=== PATIENT | female | born 1970 | race Caucasian/White ===

== ENCOUNTER 2019-06-03 09:39 | Inpatient (IN) ==
[2019-06-03] MEDS ORDERED: ASPIRIN PO ONE (09:48)
[2019-06-03] MEDS ORDERED: LOVENOX 1 MG/KG SUBQ ONE (10:17)
[2019-06-03] MEDS ORDERED: NITROGLYCERIN TOP ONE (10:17)
[2019-06-03 10:26] LABS: BASO# 0.02 X1000 (0.0-0.2); BASO% 0.3 % (0.0-0.8); EOS# 0.43 X1000 (0.0-0.7); EOS% 6.8 % (0.0-10.0); HEMATOCRIT 46.4 % (37.0-47.0); HEMOGLOBIN 16.2 g/dL (12.0-16.0); IMM GRAN# 0.02 X1000 (0.0-0.04); IMM GRAN% 0.3 % (0.0-0.5); LYMPH# 2.52 X1000 (1.2-3.4); MCH 33.7 PG (27-31); MCHC 34.9 g/dL (33-37); MCV 96.5 FL (81-99); MONO# 0.34 X1000 (0.11-0.59); MONO% 5.4 % (1.7-9.3); MPV 10.8 FL (7.4-10.4); NEUT# 2.97 X1000 (1.4-6.5); NEUT% 47.2 % (42.2-75.2); PLT 211 X1000 (130-400); RBC 4.81 XMIL (4.2-5.4); RDW 12.6 % (11.5-14.5)
[2019-06-03 10:37] LABS: AGAP 9; ALB/GLOB RATIO 1.7; ALBUMIN 4.5 g/dL (3.5-5.0); ALKALINE PHOSPHATASE 74 U/L (32-104); BUN 9 mg/dL (8-22); CALCIUM 9.4 mg/dL (8.8-10.2); CHLORIDE 104 mmol/L (98-107); CK PROFILE 88 U/L (24-173); COSMO 276; CREATININE 0.9 mg/dL (0.5-0.9); ESTIMATED GFR > 60; GLUCOSE 94 mg/dL (70-104); GOT 14 U/L (10-30); GPT 13 U/L (10-36); INR 0.87; POTASSIUM 4.9 mmol/L (3.5-5.1); PROTIME 12.6 Seconds (11.0-16.0); SODIUM 139 mmol/L (136-145); TCO2 26 mmol/L (25-35); TOTAL BILIRUBIN 0.36 mg/dL (0.20-1.00); TOTAL PROTEIN 7.2 g/dL (6.3-8.3)
[2019-06-03 10:38] LABS: PTT 29.2 Seconds (22.3-41.8)
--- NOTE | 2019-06-03 10:58 | PROVIDER DOCUMENTATION ---
This chart was entered by Romina Brown Scribe, acting as scribe for Hola Fonseca MD. HPI-Chest Pain - General Chief Complaint: Shortness of Breath Stated Complaint: HEART PT-CP ARM/JAW PAIN Time Seen by Provider: 06/03/19 09:56 Source: patient Allergies/Adverse Reactions: Patient Allergies Allergy/AdvReac Type Severity Reaction Status Date / Time No Known Allergies Allergy Verified 06/03/19 09:48 Home Medications: Home Medication List Medication Instructions Recorded Confirmed Last Taken Type Aspirin [Adult Aspirin] 1 tab PO DAILY 06/03/19 06/03/19 06/02/19 History Mv,Calcium,Min/Iron/Folic/Vitk 1 tab PO DAILY 06/03/19 06/03/19 06/02/19 History [Multi For Her Tablet] - History of Present Illness-CP Nature of Presenting Problem: 48yof presents to ED cc left side chest pain that radiates into her left neck, shoulder and elbow, SOB, nausea, lightheaded and fatigue since last night that is intermittent, last seconds and has happened about 10-15 times. Pt reports she had a wisdom tooth removed on left lower side recently and developed an infection and dry socket and originally thought pain was from that but now it feels like it did when she had a AL in 02/2018 and went into cardiac arrest. Pt reports she has 1 stent placed and just had her 1yr visit with director underwriter sales and was taken off blood thinners. Pt is A&Ox3. Location: reports: other (left side) Chest Pain Radiation: reports: neck (left), shoulders (left) Quality of Pain: reports: throbbing Severity in ED: mild Onset/Duration: last night Timing: still present, intermittent Context/Activities at Onset: reports: light activity Modifying Factors: improves with: nothing Associated Symptoms: reports: diaphoresis, fatigue, nausea, shortness of breath Nitro Today/Relief: no nitro taken today Aspirin Treatment Today: no aspirin today Prior Chest Pain/Cardiac Workup: reports: heart attack Similar Symptoms Previously?: Yes Recently Seen Here or By Another Healthcare Provider: No Review of Systems - Adult - REVIEW OF SYSTEMS - ADULT Constitutional: reports: see HPIhailey. denies: chills, fever Eyes: reports: no symptoms reported Ears, Nose, Mouth & Throat: reports: see HPI, mouth/dental pain Cardiovascular: reports: see HPI, chest pain Respiratory: reports: see HPI, shortness of breath Gastrointestinal: reports: see HPI, nausea Genitourinary: reports: no symptoms reported Musculoskeletal: reports: no symptoms reported Integumentary: reports: no symptoms reported Neurological: reports: see HPI, other (lightheaded) Psychiatric: reports: no symptoms reported Endocrine: reports: no symptoms reported Hematologic/Lymphatic: reports: no symptoms reported Allergic/Immunologic: reports: no symptoms reported All Other Systems: Reviewed and Negative Past History - Adult - PAST MEDICAL HISTORY-ADULT Review of Records: reports: Nursing Assessment Review, Medications Reviewed, Social history reviewed & non-contributory. Major Childhood Illnesses: reports: denies history Cardiovascular: reports: denies history Respiratory: reports: denies history Gastrointestinal: reports: denies history Obstetrical/Gynecological: reports: denies history Genitourinary: reports: denies history Musculoskeletal: reports: denies history Neurological: reports: denies history Endocrine/Immune: reports: denies history Other Conditions: reports: denies history - IMMUNIZATION STATUS Childhood Immunizations: See Nurse Assessment Flu Vaccine: See Nurse Assessment - FAMILY HISTORY Family History: reviewed, not pertinent - SOCIAL HISTORY Smoking: cigarettes, greater than 1 pack/day Provider spent 3-5 mins advising pt. on dangers of tobacco.: Discussed manners to quit use, and f/u contacts for add'l counseling. Physical Exam-General - PHYSICAL EXAM-ADULT Initial Vital Signs Reviewed: Yes - CONSTITUTIONAL General Appearance: appears well, alert, no apparent distress. negative: anxious, combative - EYES Eyes: PERRL/EOMI, pink conjunctivae. negative: meningismus, pale conjunctivae, photophobia - HEAD, EARS, NOSE, MOUTH & THROAT HENMT: normocephalic/atraumatic, moist mucous membranes, other (tenderness to submandibular left side operative changes to left lower molar area) - RESPIRATORY Respiratory: chest non-tender, lungs clear, normal breath sounds, no pleuratic chest pain, no respiratory distress, no accessory muscle use. negative: crackle s, rales, rhonchi, stridor, wheezing - CARDIOVASCULAR Cardiovascular: normal peripheral pulses, regular rate, rhythm, no edema, no gallop, no JVD, no murmur. negative: bradycardia, tachycardia - GASTROINTESTINAL (ABDOMEN) Abdominal Exam: normal bowel sounds, non tender, soft, no organomegaly, no pulsatile mass. negative: distended, guarding, rigid, rebound, tenderness - SKIN Integumentary: normal color, normal turgor, warm/dry. negative: cyanosis, diaphoresis, jaundice - PSYCHIATRIC Psych/Mental Status: normal mood/affect, normal thought content, normal thought process, oriented x 3. negative: disoriented x 3, anxious, disheveled, depressed affect - HEART Score HEART Score: History: Moderately Suspicious HEART Score: ECG: Normal HEART Score: Age: 45-65 Years HEART Score: Risk Factors for Atherosclerotic Disease: 1 or 2 Risk Factors Progress - PLAN OF CARE/RESULTS Progress/Plan/Lab Results: Vital Signs - 8 hr 06/03/19 09:43 06/03/19 10:08 Temperature 97.6 F Pulse Rate 79 66 Respiratory Rate 18 22 Blood Pressure 125/80 115/75 O2 Sat by Pulse Oximetry 97 96 Laboratory Results - last 24 hr 06/03/19 06/03/19 06/03/19 09:54 09:54 09:54 WBC 6.30 RBC 4.81 Hgb 16.2 H Hct 46.4 MCV 96.5 MCH 33.7 H MCHC 34.9 RDW Std Deviation 12.6 Plt Count 211 MPV 10.8 H Immature Gran % (Auto) 0.3 Neut % (Auto) 47.2 Lymph % (Auto) 40.0 [place] % (Auto) 5.4 Eos % (Auto) 6.8 Baso % (Auto) 0.3 Immature Gran # (Auto) 0.02 Neut # (Auto) 2.97 Lymph # (Auto) 2.52 [place] # (Auto) 0.34 Eos # (Auto) 0.43 Baso # (Auto) 0.02 PT INR PTT (Actin FS) Sodium 139 Potassium 4.9 Chloride 104 Carbon Dioxide 26 Anion Gap 9 BUN 9 Creatinine 0.9 Estimated GFR/1.73 m2 > 60 BUN/Creatinine Ratio 10 Glucose 94 Calculated Osmolality 276 Calcium 9.4 Total Bilirubin 0.36 AST 14 ALT 13 Alkaline Phosphatase 74 Creatine Kinase 88 Troponin T Hvw-A-Gfyekudswwi Pept 52 Total Protein 7.2 Albumin 4.5 Globulin 2.7 Albumin/Globulin Ratio 1.7 06/03/19 06/03/19 09:54 09:54 WBC RBC Hgb Hct MCV MCH MCHC RDW Std Deviation Plt Count MPV Immature Gran % (Auto) Neut % (Auto) Lymph % (Auto) [place] % (Auto) Eos % (Auto) Baso % (Auto) Immature Gran # (Auto) Neut # (Auto) Lymph # (Auto) [place] # (Auto) Eos # (Auto) Baso # (Auto) PT 12.6 INR 0.87 PTT (Actin FS) 29.2 Sodium Potassium Chloride Carbon Dioxide Anion Gap BUN Creatinine Estimated GFR/1.73 m2 BUN/Creatinine Ratio Glucose Calculated Osmolality Calcium Total Bilirubin AST ALT Alkaline Phosphatase Creatine Kinase Troponin T < 0.010 Lbn-Y-Bpanjopfcdi Pept Total Protein Albumin Globulin Albumin/Globulin Ratio Orders Category Date Time Status Cardiac Monitoring DIRECTED Care 06/03/19 09:48 Active Oxygen Therapy- ED Nursing DIRECTED Care 06/03/19 09:48 Active Saline Loc NOW Care 06/03/19 09:48 Active CHEST-2 VIEWS [RAD] Stat Exams 06/03/19 09:48 Taken CBC WITH ELECTRONIC DIFF [HEME] Stat Lab 06/03/19 09:54 Completed CK PROFILE [SP CHEM] Stat Lab 06/03/19 09:54 Completed CK PROFILE [SP CHEM] Stat Lab 06/03/19 10:42 Ordered COMPREHENSIVE METABOLIC PANEL [CHEM] Stat Lab 06/03/19 09:54 Completed PRO B-NATRIURETIC PEPTIDE Stat Lab 06/03/19 09:54 Completed PROTIME WITH INR [COAG] Stat Lab 06/03/19 09:54 Completed PTT [COAG] Stat Lab 06/03/19 09:54 Completed TROPONIN T Stat Lab 06/03/19 09:54 Completed TROPONIN T Stat Lab 06/03/19 10:42 Ordered Aspirin Med 06/03/19 09:48 Discontinued 325 mg PO NOW ONE Enoxaparin 1 mg/kg [Lovenox 1 mg/kg] Med 06/03/19 10:17 Discontinued 1 each SUBQ NOW ONE Enoxaparin [Lovenox] Med 06/03/19 11:00 Once 80 mg SUBQ ONCE ONE Nitroglycerin Med 06/03/19 10:17 Discontinued 1 inch TOP NOW ONE CP/SOB/Palp >45 yrs of Age Stat Oth 06/03/19 09:48 Ordered EKG [EKG] Stat Ther 06/03/19 09:48 Ordered EKG [EKG] Stat Ther 06/03/19 11:50 Ordered Result Diagrams: 06/03/19 09:54 06/03/19 09:54 - REASSESSMENT Reassessment #1 Time Reassessed: 10:54 Status: unchanged (remains CP free at this time) - EKG 1 Time of EKG reading by physician:: 09:47 EKG Read and Signed by:: Hola Fonseca EKG Interpretation (*Must complete 3 of following elements*): Normal Rate: 72 Rhythm: normal sinus QRS: normal WI Interval: normal - XRAY 1 XRAY Study: Chest Impression: Normal (read by me at 1054) - CONSULTS/PCP/HOSPITALIST Notification #1 *Consult/PCP/Hospitalist*: Hospitalist service paged at 1050 for admission Time Discussed: 10:58 ([facility] [place]) Consult Disposition: Admit (to [facility]) Departure - Departure Date of Disposition Decision: 06/03/19 Time of Disposition Decision: 10:55 DIAGNOSIS: Precordial chest pain, Unstable angina pectoris due to coronary arteriosclerosis, Tobacco use disorder Disposition: ADMITTED INPATIENT 09 Certified Medical Emergency: Emergent Condition: Stable Referrals and Follow-Ups: Yovany Bergman MD [Primary Care Provider] - - Critical Care Note This patient required my direct & personal management of CC.: No Attestation - Physician/ DESEAN Attestation Patient care was provided by Advanced Practice Provider:: No The physician spent face to face time with patient:: Yes Advanced Practice Provider documentation review:: Supervising physician onsite and consulted in the evaluation and care of this patient. The physician did have a face to face encounter with the patient. This chart was documented by the indicated scribe, (Romina Brown Scribe) and accurately reflects the services I performed and decisions made by Marian diaz Kent A., MD, as attested by the provider's signature.
[2019-06-03] MEDS ORDERED: LOVENOX SUBQ ONE (11:00)
[2019-06-03] MEDS ORDERED: TYLENOL PO PRN (11:35)
[2019-06-03] MEDS ORDERED: ZOFRAN IV PRN (11:35)
[2019-06-03] MEDS ORDERED: NITROGLYCERIN SL PRN (11:35)
--- NOTE | 2019-06-03 12:48 | Diag Imaging Result Doc PS360 ---
EXAM: CHEST-2 VIEWS INDICATION: sob/cp TECHNIQUE: 2 views COMPARISON: None. FINDINGS: The lungs are grossly clear. There is no discrete pleural fluid collection or pneumothorax. The cardiomediastinal silhouette and central vasculature are grossly unremarkable. IMPRESSION: No evidence of acute pathology by plain radiograph. Electronically signed by Raji Fong 06/03/2019 12:45 PM
--- NOTE | 2019-06-03 19:46 | HISTORY AND PHYSICAL ---
PRIMARY CARE PROVIDER: Dr. Yovany Huitron in [place]. BUILDING CONSTRUCTION SUPERINTENDENT: Dr. Mantilla at [facility] in [place]. CHIEF COMPLAINT: Shortness of breath, pain in elbow, neck and jaw and in between shoulder blades. HISTORY OF PRESENT ILLNESS: Ms. Saleh is a 48-year-old female who carries a past medical history of coronary artery disease status post FL with stenting to the LAD in February 2018 in [place]. She reports earlier this week she had her wisdom teeth taken out. She developed a dry socket. At that same time she was still having neck and jaw pain. She went and had the dry socket packed and was packed on antibiotics; however, she continued to have the neck and jaw pain, but then it turned into elbow pain that radiated to her shoulder blades and went through her epigastric region and into her underarm. It is intermittent and will only last 5 or 6 seconds and has increased in frequency. Nothing makes it better. Nothing makes it worse. She does become slightly nauseated and lightheaded with it, but she has increased in her shortness of breath. She denies any palpitations or any syncope. No recent fever, chills, or cough, Her first set of cardiac enzymes were negative. EKG shows normal sinus rhythm with no ST or T- wave abnormalities. We will admit her on observation status, check an echo, continue to trend her cardiac enzymes, and stress test on Wednesday. REVIEW OF SYSTEMS: Twelve-point review of systems completely negative except for those mentioned in HPI. PAST MEDICAL HISTORY: Coronary artery disease status post FL, stenting to the LAD. PAST SURGICAL HISTORY: 1. Stent in February 2018. 2. Partial hysterectomy. 3. Two back surgeries. FAMILY HISTORY: Father of an FL at the age of 43. Sister had an FL at the age of 37. A brother with diabetes mellitus. Mother with breast cancer and survived that, and then she got pancreatic cancer and was in 3 months. SOCIAL HISTORY: She is from [place]. She has a boyfriend at the bedside. She is a 1-pack-per- day smoker and has done so for many years. Only occasional alcohol. No marijuana or illicit drug use. ALLERGIES: No known drug allergies. HOME MEDICATIONS: 1. Aspirin 81 mg p.o. daily. 2. Multivitamin For Her 1 tab p.o. daily. 3. Amoxicillin (this has not been put in the computer yet) PHYSICAL EXAMINATION: VITAL SIGNS: Temperature 97.6, heart rate 56, respirations 18, blood pressure 106/70, O2 is 96% on room air. GENERAL: Ms. Saleh is a pleasant 48-year-old female who is sitting up on the stretcher in no acute distress. HEENT: Atraumatic, normocephalic. PERRL. NECK: Supple. Trachea midline. CARDIOVASCULAR: S1, S2 appreciated. No murmurs, gallops or rubs noted. No JVD. No lower extremity edema. Bilateral pedal pulses are palpable. RESPIRATORY: Lung sounds clear bilaterally. Bilaterally decreased in the bases. GI: Soft, nontender, nondistended. Positive bowel sounds in 4 quadrants. EXTREMITIES: No signs of clubbing or cyanosis. SKIN: Warm dry and intact. NEUROLOGIC: No focal deficits noted. DIAGNOSTIC DATA: One EKG on chart that shows normal sinus rhythm. Chest x-ray has been taken, awaiting official over-read. LABORATORY DATA: White count 6, hemoglobin and hematocrit 16 and 46, platelet count 211. Sodium 139, potassium 4.9, BUN 9, creatinine 0.9 blood glucose 94. First set of troponins less than 0.010, proBNP 52. ASSESSMENT AND PLAN: 1. Chest pain in a patient with known coronary artery disease with a stent to the LAD in February 2018. She had similar symptoms with pain in the elbow, neck and jaw with her previous FL. We will place her in the observation unit, check an echocardiogram, and do a stress test on Wednesday. Follow-up EKG. Continue to trend her cardiac enzymes. P.r.n. nitroglycerin. Initiate her back on the statin. She was given full-dose Lovenox in the emergency department. We will continue on daily full-dose aspirin. We will consult Cardiology if her enzymes trend positive or if there are any abnormalities on her echo or stress test. 2. Recent left bottom wisdom tooth removal, status post packing for dry socket. The patient was on amoxicillin. We will initiate that once we get her doses back for her antibiotics. She did take her morning dose. 3. Tobacco use and abuse. Will need continued education on smoking cessation as well as the means to quit. She refused a nicotine patch. 4. Further recommendations to follow physician evaluation, laboratory and diagnostic data. Dictated by WES Judge for Kareem Mcguire MD Addendum: Patient seen and examined by myself. Agree with WES note. It reflects my assessment and plan. Patient is being admitted to hospital for chest pain work up. Considering her CAD will consult Cardiology, Lexiscan and echo as well. cc: Kareem Mcguier MD [facility]
--- NOTE | 2019-06-03 20:45 | EKG Report ---
Test Performed on : 06/03/2019 09:48:36 AM Test Reason : CP Blood Pressure : / mmHG Vent. Rate : 072 BPM Atrial Rate : 072 BPM P-R Int : 150 ms QRS Dur : 080 ms QT Int : 392 ms P-R-T Axes : 058 052 039 degrees QTc Int : 429 ms Normal sinus rhythm. Normal ECG No previous ECGs available Unconfirmed Result
[2019-06-03] MEDS ORDERED: PRAVACHOL PO SCH (21:00)
[2019-06-04 06:07] LABS: BASO# 0.02 X1000 (0.0-0.2); BASO% 0.4 % (0.0-0.8); EOS% 7.3 % (0.0-10.0); HEMATOCRIT 43.5 % (37.0-47.0); HEMOGLOBIN 14.9 g/dL (12.0-16.0); LYMPH% 41.9 % (20.5-51.1); MCHC 34.3 g/dL (33-37); MCV 99.3 FL (81-99); MONO# 0.49 X1000 (0.11-0.59); MONO% 8.9 % (1.7-9.3); MPV 10.7 FL (7.4-10.4); NEUT# 2.28 X1000 (1.4-6.5); NEUT% 41.5 % (42.2-75.2); PLT 185 X1000 (130-400); RBC 4.38 XMIL (4.2-5.4); RDW 12.6 % (11.5-14.5); WBC 5.49 X1000 (4.8-10.8)
[2019-06-04] MEDS: PRILOSEC PO SCH (06:14)
[2019-06-04 06:20] LABS: AGAP 9; ALB/GLOB RATIO 1.2; ALBUMIN 3.7 g/dL (3.5-5.0); ALKALINE PHOSPHATASE 62 U/L (32-104); BUN 13 mg/dL (8-22); CALCIUM 8.9 mg/dL (8.8-10.2); CHLORIDE 105 mmol/L (98-107); CHOLESTEROL 172 mg/dL (0-200); COSMO 278; CREATININE 0.9 mg/dL (0.5-0.9); ESTIMATED GFR > 60; GLUCOSE 96 mg/dL (70-104); GOT 13 U/L (10-30); GPT 11 U/L (10-36); HDL 33 mg/dL (45-65); LDL 70 mg/dL; MAGNESIUM 1.9 mg/dL (1.5-2.7); POTASSIUM 4.6 mmol/L (3.5-5.1); SODIUM 139 mmol/L (136-145); TCO2 25 mmol/L (25-35); TOTAL BILIRUBIN 0.31 mg/dL (0.20-1.00); TOTAL PROTEIN 6.7 g/dL (6.3-8.3); TRIGLYCERIDES 347 mg/dL (35-135); VLDL 69 mg/dL
--- NOTE | 2019-06-04 07:55 | Diag Imaging Result Doc PS360 ---
EXAM: CHEST-PORTABLE INDICATION: Chest Pain TECHNIQUE: One view COMPARISON: 06/03/2019 FINDINGS: The lungs are grossly clear. There is no discrete pleural fluid collection or pneumothorax. The cardiomediastinal silhouette and central vasculature are grossly unremarkable. IMPRESSION: No evidence of acute pathology by plain radiograph. Electronically signed by Raji Fong 06/04/2019 7:52 AM
--- NOTE | 2019-06-04 11:17 | PROGRESS NOTE ---
DATE: 06/04/2019 SUBJECTIVE: Since admission, the patient is not complaining of any chest pain. Actually, she had nitroglycerin paste that was removed today. While she was on that, she has not had any more chest pain. OBJECTIVE: Vital signs: Temperature is 98.2, heart rate 60, respirations 16, blood pressure 106/59. O2 saturation is 96% on 2 L nasal cannula. General: This is a 48-year-old female lying in bed, in no acute distress. Cardiovascular: S1 and S2 heard. No murmurs, rubs or gallops. Regular rate and rhythm. Respiratory: Clear bilaterally to auscultation. No work of breathing or using accessory muscles. Abdomen: Soft. Nontender to palpation. Bowel sounds present. No organomegaly. Extremities: No cyanosis, clubbing or edema. Peripheral pulses present in both legs. Neurologic: The patient is alert and oriented x3. Moves all 4 extremities. DIAGNOSTIC DATA: Three sets of troponins have been negative. ASSESSMENT AND PLAN: 1. Chest pain in a patient with known coronary artery disease with previous myocardial infarction and also stent in LAD. The patient, because of that condition, has been admitted to the hospital. At this time, three sets of troponins have been checked, and those are negative. We are going to do a Lexiscan tomorrow. We are going to consult Cardiology, and we will go from there. 2. Tobacco abuse. The patient has been strongly advised to stop smoking. 3. Recent left bottom wisdom tooth removal, status post packing for dry socket. We will continue with amoxicillin. 4. Disposition. We will continue to monitor this patient closely. cc: Kareem Mcguire MD
[2019-06-04] MEDS: ASPIRIN PO SCH (11:26)
[2019-06-04] MEDS: LOVENOX SUBQ SCH (11:27)
--- NOTE | 2019-06-04 12:16 | CARDIOLOGY CONSULTATION ---
DATE: 06/04/2019 INDICATION: Chest pain. HISTORY OF PRESENT ILLNESS: Ms. Saleh is a 48-year-old, white female with a history of coronary artery disease and it sounds like she had a cardiac arrest with PCI performed in 2018. She has had some tooth and jaw pain for the last several days with a dry socket and wisdom teeth removal. She had some jaw pain that radiated down the neck and was persistent. At some point on Wednesday, she had some upper left lateral chest discomfort that would be intermittent throughout the day. It lasted for around 5 minutes. There was no exertional component. No shortness of breath. No diaphoresis. PAST MEDICAL HISTORY: 1. Significant for coronary artery disease and it sounds like this occurred. She had stenting done, occurring in the setting of a cardiac arrest and hypothermia protocol. 2. Hyperlipidemia. SOCIAL HISTORY: She continues to smoke. Occasional alcohol. No illicit drugs. FAMILY HISTORY: Father of an TN at 43. Sister had an TN at 37. She has a brother with diabetes. REVIEW OF SYSTEMS: A 10 system review of systems is negative except for those things mentioned in the HPI. PHYSICAL EXAMINATION: She is afebrile. Heart rates have been in the 50s to 60s, occasionally dropping into the 40s. Blood pressure 122/70. General: She is in no acute distress. HEENT: Oropharynx is moist. Normal dentition. Eye examination shows pink conjunctivae and white sclerae. Neck: Examination shows no obvious thyromegaly or thyroid tenderness. Cardiovascular: She sounds to be in a regular rate and rhythm. She has no obvious murmurs. She has no S3. She has no lower extremity edema. Chest: Examination is clear to auscultation bilaterally. She has no increased work of breathing. Abdomen: Soft, nontender, nondistended. She has no obvious organomegaly. Skin Examination: Warm and dry throughout, without any rashes. Neurological Examination: She is moving all extremities well. She has no lateralizing deficits. PERTINENT DATA: Her chest x-ray was unremarkable for any abnormalities. Her EKG on presentation showed sinus rhythm, no signs of ST-T wave abnormalities. White count is 5.4, hematocrit 43, platelet count 185,000. Sodium 139, potassium is 4.6, BUN 13, creatinine 0.9. Her LDL was 70, HDL was 33. TSH 7.38. ASSESSMENT: Ms. Saleh is a 48-year-old female with atypical chest pain, with a history of coronary artery disease, previous myocardial infarction. PLAN: She has normal cardiac enzymes, atypical symptoms, normal EKG. Her echocardiogram is currently pending. Her HDL was low. Her LDL was borderline. I have initiated high-intensity statin therapy with Lipitor 40 mg at bedtime and stopped her pravastatin. We will continue her on aspirin therapy. Myocardial perfusion imaging will be obtained in the morning. If this is okay, she can be discharged home. 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 cc: Storm Spencer MD
--- NOTE | 2019-06-04 17:49 | ECHO REPORT ---
ORDER DATE: 06/03/2019 INDICATION: Chest pain, history of coronary disease, tobacco use. FINDINGS: 1. Right atrium appears normal in size at 2.7 cm. 2. Mild tricuspid regurgitation. RV systolic pressure 28. 3. Normal RV size and systolic function. 4. Mild pulmonic insufficiency. 5. Normal left atrial size with a dimension of 3 cm, volume index of 23. 6. No mitral valve prolapse. Trace mitral regurgitation. 7. Normal LV size, end-diastolic dimension of 4.2. Normal wall thicknesses with a posterior and interventricular septal wall thickness of 0.7 cm each. Normal LV systolic function. Estimated EF of 55% with normal wall motion. 8. Aortic valve opens well. No evidence of stenosis or insufficiency. 9. Aorta appears normal in visualized segments. 10. No pericardial effusion seen. cc: Storm Spencer MD
--- NOTE | 2019-06-04 18:23 | EKG Report ---
Test Performed on : 06/04/2019 06:32:11 AM Test Reason : CP Blood Pressure : / mmHG Vent. Rate : 055 BPM Atrial Rate : 055 BPM P-R Int : 140 ms QRS Dur : 088 ms QT Int : 446 ms P-R-T Axes : 024 062 034 degrees QTc Int : 426 ms Sinus bradycardia. Otherwise normal ECG When compared with ECG of 03-JUN-2019 09:48, (Unconfirmed) No significant change was found Confirmed by Vipin Marie MD ([id number]) on 06/06/2019 9:11:06 PM
[2019-06-04] MEDS ORDERED: LIPITOR PO SCH (21:00)
[2019-06-05] MEDS ORDERED: NS 1,000 ML IV SCH (00:01)
[2019-06-05] MEDS: PRILOSEC PO SCH (06:11)
[2019-06-05 08:06] VITALS: BP 114/73
[2019-06-05] MEDS ORDERED: LEXISCAN ONE (09:48)
[2019-06-05] MEDS: LOVENOX SUBQ SCH (11:39)
[2019-06-05] MEDS: ASPIRIN PO SCH (11:39)
--- NOTE | 2019-06-05 18:48 | CARDIOLOGY PROGRESS NOTE ---
DATE: 06/05/2019 SUBJECTIVE: Ms. Saleh reports her wheezing has improved. She has no pain complaints. PHYSICAL EXAMINATION: Vital signs: She is afebrile, heart rate 73, blood pressure 114/73. General: She is in no acute distress. Cardiovascular: She sounds to be in a regular rate and rhythm. She has no murmurs. She has no S3. She has no lower extremity edema. Chest: Has mild bilateral end-expiratory wheezes throughout. No increased work of breathing. Abdomen: Soft, nontender, nondistended. PERTINENT DATA: Myocardial perfusion imaging is currently pending. Her echocardiogram from the demonstrated a normal ejection fraction. Her lab data shows white count of 5.5, hematocrit 43, platelet count 185,000, sodium 139, potassium 4.6, BUN 13, creatinine 0.9. LDL was 70, HDL 33. ASSESSMENT: Ms. Saleh is a 48-year-old female who presented with chest pain. She has a history of coronary disease. PLAN: Myocardial perfusion imaging is pending. If this is unremarkable, then she could likely be discharged home. Her ejection fraction is normal. She was initiated on high-intensity statin therapy based on her previous history of PCI. If her myocardial perfusion imaging is unremarkable then she can be discharged home to follow up with her primary bus boy. cc: Storm Spencer MD
--- NOTE | 2019-06-05 22:31 | Diag Imaging Result Document ---
PROCEDURE NAME: MYOCARDIAL PERF SCAN, STR/REST - 06/05/2019 STUDY: Rest/stress treadmill exercise myocardial perfusion study. INDICATION: Patient with chest pain. DESCRIPTION: The patient came into the nuclear laboratory, received resting injection of technetium 99 sestamibi 17.5 mCi. Multiple tomographic views of the cardiac structures were obtained at rest. Subsequently, the patient underwent a treadmill exercise protocol. At peak exercise, injected with technetium 99 sestamibi 40.9 mCi. Multiple tomographic views of the cardiac structures were obtained following the completion of the protocol. SUMMARY OF THE ELECTROCARDIOGRAPHIC PORTION OF THE STUDY: Resting ECG shows sinus rhythm, rate 57 beats per minute. Resting blood pressure 120/80. Resting ECG shows no significant abnormalities. The patient walked on the treadmill for 6 minutes and 52 seconds. The test was terminated due to the development of chest pain. Peak heart rate achieved 148 beats per minute, representing 86% of maximum predicted heart rate for her age. Maximum workload is 8.3 METS. Peak blood pressure was 135/74. Peak exercise ECG at the time when the patient reported chest discomfort shows sinus tachycardia without any ischemic changes. The recovery phase was unremarkable. Heart rate and blood pressure returned back to their baseline. The chest discomfort subsided very quickly. She reported dyspnea. In summary, the clinical response to exercise is suspicious for ischemia, however ECG showed no changes. Blood pressure response is somewhat blunted. Level of stress is low based on the double product of peak systolic blood pressure x peak heart rate equal to 19,980. The exercise capacity is decreased by a factor of 15%. SUMMARY OF THE MYOCARDIAL PERFUSION PORTION OF THE STUDY: Poststress tomographic views of the left ventricle showed normal homogeneous distribution of radiotracer throughout the entire left ventricular myocardium. There is no evidence of any postexercise defect. The rest images showed normal perfusion. Polar plots revealed the same. There is no convincing evidence of any inducible ischemia nor myocardial scar. Gated SPECT showed normal left ventricular systolic function. Ejection fraction is 76%. Normal ventricular volumes. No wall motion abnormality. The lung/heart ratio is normal. TID is normal. SUMMARY: This study shows: 1. Negative electrocardiographic response to exercise with complaint of chest pain at peak effort that could represent angina, however it resolved very quickly and there were no ischemic changes subsequently. 2. Normal poststress myocardial perfusion scan. There is no scintigraphic evidence of effort induced myocardial ischemia. 3. Normal left ventricular systolic function, ejection fraction estimated at 77% with normal ventricular volumes. No wall motion abnormality. Clinical correlation is recommended. cc: Micah Landa MD
--- NOTE | 2019-06-06 12:25 | DISCHARGE SUMMARY ---
ADMISSION DATE: 06/03/2019 DISCHARGE DATE: 06/05/2019 DISCHARGE DIAGNOSES: 1. Chest pain, resolved. 2. Acute coronary syndrome ruled out. 3. Tobacco abuse. CONSULTATIONS: Dr. Storm Spencer from Cardiology. PROCEDURES: 1. Echocardiogram Doppler showed ejection fraction of 55% with no pericardial effusion, no evidence of aortic stenosis or insufficiency 2. Chest x-ray done on admission showed no evidence of acute pathology by plain radiograph. HOSPITAL COURSE: This is a 48-year-old female with past medical history of coronary disease status post NV with stenting in [place] in February 2019, who presented to the emergency department complaining of chest pain. Considering his past medical history, he was admitted for observation. He reports still a feeling of lightheaded with chest pain that at the time of my examination, that sensation was gone. We have trended troponins x3 and those has been negative considering her past medical history, we decided to do a Lexiscan test which was informed as verbally negative, so the patient is going to be discharged in stable condition. We are not going to make any changes to her current treatment except adding atorvastatin 40 mg p.o. daily to her current treatment. DISCHARGE PHYSICAL EXAMINATION: Vital signs: Temperature 97.6 degrees, heart rate 73, respiratory rate 18, blood pressure 114/73, O2 saturation 95% on room air. General: This is a 48-year-old female lying in bed, in no acute distress. Cardiovascular: S1, S2 heard. No murmurs, gallops, or rubs. Regular rate and rhythm. Respiratory: Clear bilaterally to auscultation. No work of breathing or using accessory muscles. Abdomen: Soft, nontender to palpation. Bowel sounds present. No organomegaly. Extremities: No clubbing, cyanosis, or edema. Peripheral pulses present in both legs. Neurological: The patient is alert and oriented x3. Moves 4 extremities. DISCHARGE DISPOSITION: Home to self-care. DISCHARGE MEDICATIONS: 1. Atorvastatin 40 mg 1 tablet p.o. at bedtime. 2. Aspirin 1 tablet p.o. daily 81 mg. 3. Amoxicillin as she was previously taking. 4. Paton 5 as needed for pain. FOLLOWUP: With his primary care physician in a week. TIME SPENT: Discharge time, 33 minutes cc: Kareem Mcguire MD
== END 2019-06-05 16:31 | disposition home or self-care (01) | DRG 313 ==
LOC: ED 09:39 → 4N 09:39 → OBSVTOIN 11:26
PROVIDERS: ATTEND Internal Medicine
CPT/HCPCS: 71010; 71020; 71045; 71046; 78452; 80053; 80061; 82550; 83735; 83880; 84443; 84484; 85025; 85610; 85730; 93005; 93010; 93017; 93306; 94761; A9270; A9500; J1650; J2785; J7030